=== PATIENT | male | born 1990 | race Caucasian/White ===

== ENCOUNTER → 2022-12-19 | Outpatient (CLI) | payer OTHER ==
[2022-12-19 15:33] LABS: Basophils # (A) 0.08 X 10*3/uL (0.00-0.10); Basophils % (A) 1.1 %; Eosinophils # (A) 0.13 X 10*3/uL (0.04-0.35); Eosinophils % (A) 1.8 %; HCT 50.1 % (39.6-50.0); HGB 16.9 d/dL (12.0-15.0); Lymphocytes # (A) 1.92 X 10*3/uL (0.90-5.00); Lymphocytes % (A) 27.1 %; MCH 29.6 pg (27.0-32.0); MCHC 33.7 d/dL (32.0-37.0); MCV 87.7 FL (80.0-97.0); Mean Platelet Volume 10.7 FL (9.5-12.2); Monocytes # (A) 0.42 X 10*3/uL (0.20-1.00); Monocytes % (A) 5.9 %; NRBC Per 100 WBC 0 X 10*3/uL (0.00-0.01); Neutrophils # (A) 4.47 X 10*3/uL (1.80-7.70); Neutrophils % (A) 63.1 %; Platelet Count 311 X 10*3/uL (140-440); RBC 5.71 X 10*6/uL (4.40-5.60); RDW 11.8 % (11.5-14.5); WBC 7.09 X 10*3/uL (4.50-10.00)
[2022-12-19 15:53] LABS: ALT 40 U/L (10-49); AST 17 U/L (14-35); Albumin 4.8 d/dL (3.8-4.9); Albumin/Globulin Ratio 1.71 Ratio (1.60-3.17); Alkaline Phosphatase 98 U/L (41-126); BUN/Creat Ratio 14.62 Ratio (12.00-20.00); Bilirubin, Conjugated <0.20 mg/dL (0.20-0.40); Bilirubin,Unconjugated >0.30 mg/dL (0.20-1.00); Blood Urea Nitrogen 11.7 mg/dL (9.0-27.0); Calcium 9.6 mg/dL (8.7-10.3); Carbon Dioxide 25.7 mmol/L (21.6-31.8); Chloride 102 mmol/L (96-109); Chol/HDL Ratio 4.45 Ratio; Globulin 2.8 d/dL (1.6-3.3); Glucose 99 mg/dL (70-110); Iron 138 UG/DL (65-175); LDL Cholesterol,Calculated 115.2 mg/dL (0.0-131.0); Potassium 4.3 mmol/L (3.5-5.5); Sodium 141 mmol/L (135-145); Total Bilirubin 0.5 mg/dL (0.3-1.2); Total Iron Binding Capacity 451 UG/DL (228-460); Total Protein 7.6 d/dL (6.2-8.2)
[2022-12-19 16:00] LABS: Hepatitis A Antibody IgM Nonreactive; Hepatitis B Surface Antigen Nonreactive; Hepatitis C IgG Antibody Nonreactive
[2022-12-19 16:15] LABS: Ceruloplasmin 30.3 mg/dL (20.0-60.0)
[2022-12-19 16:42] LABS: Hepatitis B Core IgM Nonreactive
[2022-12-20 05:30] LABS: EBV - VCA IgM <10.0 U/mL (<36.0)
[2022-12-20 11:51] LABS: Smooth Muscle Antibody 9 UNITS (<20)
== END | disposition home or self-care (01) ==
LOC: LABWHC1 10:02
PROVIDERS: ATTEND Internal Medicine
DX: I10 Essential (primary) hypertension (principal); R74.01 Elevation of levels of liver transaminase levels
CPT/HCPCS: 36415; 80053; 80061; 80074; 82103; 82248; 82390; 82525; 83516; 83540; 83550; 84443; 85025; 86038; 86645; 86665

== ENCOUNTER → 2024-01-06 | Outpatient (CLI) | payer OTHER ==
[2024-01-06 23:12] LABS: HCT 46.3 % (39.6-50.0); HGB 14.9 g/dL (13.0-17.0); MCH 29.2 pg (27.0-32.0); MCHC 32.2 g/dL (32.0-37.0); MCV 90.6 FL (80.0-97.0); Mean Platelet Volume 11.1 FL (9.5-12.2); NRBC Per 100 WBC 0 X 10*3/uL (0.00-0.01); Platelet Count 283 X 10*3/uL (140-440); RBC 5.11 X 10*6/uL (4.40-5.60); RDW 11.9 % (11.5-14.5); WBC 7.11 X 10*3/uL (4.50-10.00)
[2024-01-06 23:13] LABS: Basophils # (A) 0.05 X 10*3/uL (0.00-0.10); Basophils % (A) 0.7 %; Eosinophils # (A) 0.22 X 10*3/uL (0.04-0.35); Eosinophils % (A) 3.1 %; Lymphocytes # (A) 2.12 X 10*3/uL (0.90-5.00); Lymphocytes % (A) 29.8 %; Monocytes # (A) 0.62 X 10*3/uL (0.20-1.00); Monocytes % (A) 8.7 %; Neutrophils # (A) 4.06 X 10*3/uL (1.80-7.70); Neutrophils % (A) 57.1 %
[2024-01-07 10:44] LABS: ALT 33 U/L (10-49); AST 21 U/L (14-35); Albumin 4.6 g/dL (3.8-4.9); Alkaline Phosphatase 80 U/L (41-126); BUN/Creat Ratio 17.29 Ratio (12.00-20.00); Blood Urea Nitrogen 12.1 mg/dL (9.0-27.0); Calcium 9.5 mg/dL (8.7-10.3); Carbon Dioxide 26.5 mmol/L (21.6-31.8); Chloride 106 mmol/L (96-109); Chol/HDL Ratio 3.47 Ratio; Glucose 106 mg/dL (70-110); LDL Cholesterol,Calculated 75.8 mg/dL (0.0-131.0); Sodium 143 mmol/L (135-145); Total Bilirubin <0.2 mg/dL (0.3-1.2); Total Protein 6.6 g/dL (6.2-8.2)
== END | disposition home or self-care (01) ==
LOC: LABWHC1 11:42
PROVIDERS: ATTEND Internal Medicine
DX: I10 Essential (primary) hypertension (principal)
CPT/HCPCS: 36415; 80053; 80061; 84443; 85025